=== PATIENT | female | born 1985 | race African-American/Black ===

== ENCOUNTER 2017-03-04 22:14 | Emergency (ER) | payer MEDICAID ==
[~2017-03-04] VITALS: Ht 167.6 cm; Wt 113.4 kg
[~2017-03-04 22:14] MED LIST: AZITHROMYCIN250 MG ORAL; CEPHALEXIN500 MG ORAL; IBUPROFEN800 MG ORAL; NKM; NORCO 10/3251 EA ORAL; PSEUDOEPHEDRINE60 MG PO; ZOFRAN ODT4 MG ORAL
[2017-03-04] MEDS ORDERED: IBUPROFEN600 MG ORAL (23:03)
--- NOTE | 2017-03-04 23:14 | Emergency Room Report ---
History of Present Illness General Chief Complaint: Lower Extremity Injury Source: Patient Present Illness HPI 31YOF with lateral left ankle swelling 1 day after "missed step" Unsure if eversion/inversion of ankle No other injury Previous RIGHT ankle fx Didnt take OTC meds Swelling worse today Allergies: Coded Allergies: PENICILLINS (Unverified Allergy, Unknown, 12/25/15) Uncoded Allergies: PENECILLIN (Allergy, Unknown, 12/25/15) Patient History Past Medical History: none Past Surgical History: other - Right ankle fx Pertinent Family History: none Social History: Denies: smoking, alcohol use, drug use Last Menstrual Period: last month Now: No : 2 Immunizations: UTD Reviewed Nursing Documentation: PMH: Agreed, PSxH: Agreed Review of Systems All Other Systems: negative except mentioned in HPI Physical Exam Vital Signs Date Time Temp Pulse Resp B/P (MAP) Pulse Ox O2 Delivery O2 Flow Rate FiO2 03/04/17 22:19 98.1 78 20 126/79 99 Room Air Sp02 EP Interpretation: reviewed, normal General Appearance: normal inspection, well appearing, no apparent distress, alert Head: atraumatic ENT: normal ENT inspection, hearing grossly normal, normal voice Neck: normal inspection, full range of motion, supple, no bony tend Respiratory: normal inspection, lungs clear, normal breath sounds, no respiratory distress, no retraction, no wheezing Cardiovascular #1: regular rate, rhythm, no edema Gastrointestinal: normal inspection, normal bowel sounds, non tender, soft, no guarding, no hernia Genitourinary: no CVA tenderness Musculoskeletal: normal inspection, back normal, normal range of motion, Oscar' s Sign negative, other - left ankle: obvious lateral malleoli swelling with ttp. Otherwise ankle with full ROM. No dorsal ttp. No proximal lower extremity pain at knee. Neurologic: normal inspection, alert, oriented x3, responsive, director of hospitality III-XII nml as tested, speech normal Psychiatric: normal inspection, judgement/insight normal, mood/affect normal Skin: normal inspection, normal color, no rash Medical Decision Making Diagnostic Impression: Primary Impression: Ankle sprain Qualified Codes: S93.492A - Sprain of other ligament of left ankle, initial encounter ER Course left ankle sprain No fx, dislocation on ED review of xray Likely sprain KHADIJAH wrap, crutches provided Analgesia given RICE instructions with PMD/Ortho followup recommended DC home Other X-Ray Diagnostic Results Other X-Ray Diagnostic Results : X-Ray ordered: Left ankle # of Views/Limited Vs Complete: 3 View Indication: Pain EP Interpretation: Yes Interpretation: no dislocation, no fractures, other - +soft tissue swelling lateral malleoli Electronically Signed by: Dr Jaylen Alvarado MD Last Vital Signs Date Time Temp Pulse Resp B/P (MAP) Pulse Ox O2 Delivery O2 Flow Rate FiO2 03/04/17 22:19 98.1 78 20 126/79 99 Room Air Status: improved Disposition: HOME, SELF-CARE Condition: Improved Scripts Ibuprofen* (MOTRIN*) 600 Mg Tablet 600 MG ORAL THREE TIMES A DAY for For Pain for 7 Days, #30 TAB 0 Refills Prov: JAYLEN ALVARADO M.D. 03/04/17 Referrals: [facility],REFERRING (PCP) Patient Instructions: Ankle Sprain JAYLEN ALVARADO M.D. Mar 04, 2017 23:14
[2017-03-04 23:20] VITALS: BP 126/79
--- NOTE | 2017-03-05 12:14 | Diagnostic Imaging Report ---
Indication: left ankle pain Comparison: None Findings: 3 views of the left ankle obtained. There is soft tissue swelling. There is no malalignment or fracture identified Impression: Soft tissue swelling
== END 2017-03-04 23:20 | disposition home or self-care (01) ==
LOC: EMR 22:31
DX: S93.402A Sprain of unspecified ligament of left ankle, initial encounter (principal); W10.8XXA Fall (on) (from) other stairs and steps, initial encounter; Y92.89 Other specified places as the place of occurrence of the external cause; Z88.0 Allergy status to penicillin
CPT/HCPCS: 99283

== ENCOUNTER 2018-07-22 22:39 | Emergency (ER) | payer MEDICAID ==
[~2018-07-22] VITALS: Ht 167.6 cm; Wt 117.9 kg
[~2018-07-22 22:39] MED LIST changes: +IBUPROFEN600 MG ORAL
[2018-07-22 22:50] VITALS: BP 123/82
[2018-07-22] MEDS ORDERED: HYDROcodone/Acetamin 5/325 tab ORAL ONE (23:00)
--- NOTE | 2018-07-22 23:08 | Emergency Room Report ---
History of Present Illness General Chief Complaint: Female Urogenital Problems Source: Patient Present Illness HPI Is a 32-year-old female with no respiration. She presents with chief complaint of right flank pain and vaginal pain. Onset today. Also with urinary frequency and urgency. Also with some hematuria. No nausea no vomiting. Pain is 7 out of 10. Sharp in nature. Derwent burning to her lower back. Denies any other complaint. Allergies: Coded Allergies: PENICILLINS (Unverified Allergy, Unknown, 12/25/15) PINEAPPLE (Verified Allergy, Unknown, 07/22/18) Uncoded Allergies: PENECILLIN (Allergy, Unknown, 12/25/15) Patient History Past Medical History: see triage record, old chart reviewed Past Surgical History: none Pertinent Family History: none Social History: Denies: smoking Last Menstrual Period: Jul 04 2018 Now: No Immunizations: other Reviewed Nursing Documentation: PMH: Agreed; PSxH: Agreed Review of Systems Eye: Denies: eye pain, blurred vision ENT: Denies: ear pain, nose congestion, throat swelling Respiratory: Denies: cough, shortness of breath Cardiovascular: Denies: chest pain, palpitations Gastrointestinal: Denies: abdominal pain, diarrhea, nausea, vomiting Genitourinary: Reports: dysuria, hematuria, pain, urgency Musculoskeletal: Reports: back pain; Denies: joint pain Skin: Denies: rash Neurological: Denies: headache, numbness Endocrine: Denies: increased thirst, increased urine Hematologic/Lymphatic: Denies: easy bruising All Other Systems: negative except mentioned in HPI Physical Exam Vital Signs Date Time Temp Pulse Resp B/P (MAP) Pulse Ox O2 Delivery O2 Flow Rate FiO2 07/22/18 22:45 98.2 83 20 123/82 98 Room Air vitals normal Sp02 EP Interpretation: reviewed, normal General Appearance: well appearing, no apparent distress, alert, obese Head: normocephalic, atraumatic Eyes: bilateral eye PERRL, bilateral eye EOMI ENT: hearing grossly normal, normal pharynx Neck: full range of motion, supple, no meningismus Respiratory: chest non-tender, lungs clear, normal breath sounds Cardiovascular #1: regular rate, rhythm, no murmur Gastrointestinal: normal bowel sounds, non tender, no mass, no organomegaly, no bruit, non-distended Musculoskeletal: back normal, gait/station normal, normal range of motion Psychiatric: mood/affect normal Skin: warm/dry Medical Decision Making Diagnostic Impression: Primary Impression: UTI (urinary tract infection) Qualified Codes: N30.01 - Acute cystitis with hematuria ER Course Patient with abdominal pain and has UTI with hematuria. No evidence of pyelonephritis or kidney stone. No evidence of acute abdomen. We'll discharge home with antibiotics. CT/MRI/US Diagnostic Results CT/MRI/US Diagnostic Results : Imaging Test Ordered: CT abdomen and pelvis Impression negative per radiologist Last Vital Signs Date Time Temp Pulse Resp B/P (MAP) Pulse Ox O2 Delivery O2 Flow Rate FiO2 07/22/18 22:45 98.2 83 20 123/82 98 Room Air Status: improved Disposition: HOME, SELF-CARE Condition: Stable Scripts Hydrocodone/Acetaminophen 5-325* (HYDROCODONE/ACETAMINOPHEN 5-325*) 1 Each Tablet 1 TAB ORAL Q6H PRN for For Pain, #15 TAB 0 Refills Prov: Polo Duarte MD 07/22/18 Cephalexin* (KEFLEX*) 500 Mg Capsule 500 MG ORAL TID, #21 CAP Prov: Polo Duarte MD 07/22/18 Referrals: NOT CHOSEN [facility]/,REFERRING (PCP) Patient Instructions: Urinary Tract Infection Additional Instructions: Follow-up with your Dr. in 7 days. Return if symptom worsen. Polo Duarte MD Jul 22, 2018 23:08
[2018-07-22 23:10] LABS: APPEARANCE,URINE SLIGHTLY CLOUDY; BILIRUBIN, URINE NEGATIVE (NEGATIVE); GLUCOSE, URINE (UA) NEGATIVE (NEGATIVE); KETONES,URINE NEGATIVE (NEGATIVE); LEUKOCYTE ESTERASE ,URINE 2+ (NEGATIVE); NITRITE,URINE NEGATIVE (NEGATIVE); PH,URINE 5 (4.5-8.0); PROTEIN,URINE 1+ (NEGATIVE); UROBILINOGEN,URINE NORMAL MG/DL (0.0-1.0)
[2018-07-22 23:12] LABS: COLOR,URINE YELLOW
[2018-07-22] MEDS ORDERED: HYDROCODON-ACE1 EA15 ORAL (23:59)
[2018-07-22] MEDS ORDERED: CEPHALEXIN500 MG ORAL (23:59)
[2018-07-23] MEDS ORDERED: Cephalexin 500mg cap ORAL ONE
[2018-07-23] MEDS ORDERED: FLUCONAZOLE100 MG ORAL (00:06)
[2018-07-23 00:09] VITALS: BP 126/70
--- NOTE | 2018-07-23 10:48 | Diagnostic Imaging Report ---
Indication: Abdominal pain Technique: Continuous helical transaxial imaging of the abdomen and pelvis was obtained from the lung bases to the pubic symphysis. No intravenous contrast was administered. Coronal 2-D reformats were also obtained. Automatic Exposure Control was utilized. Total Dose length Product (DLP): 1071.[address] Dose Index Volume (CTDIvol): 19.51 mGy Comparison: none Findings: The lung bases are clear. Evaluation of solid organs limited on this exam done without IV contrast material or oral contrast. There is no nephrolithiasis or hydronephrosis identified. The size of the liver and spleen appear normal. There is no free fluid. The appendix is normal. Intrauterine device noted. The bladder is nondistended. No evidence of bowel obstruction. No free air seen. IMPRESSION: Limited evaluation due to body habitus. No acute findings appreciated IUD. [facility] has communicated the preliminary results to the Emergency Department. Their findings are largely concordant with this report. The CT scanner at [facility] is accredited by the [employer] and the scans are performed using dose optimization techniques as appropriate to a performed exam including Automatic Exposure control.
== END 2018-07-23 00:10 | disposition home or self-care (01) ==
LOC: EMR 22:50
DX: N39.0 Urinary tract infection, site not specified (principal); R31.9 Hematuria, unspecified; Z88.0 Allergy status to penicillin; Z97.5 Presence of (intrauterine) contraceptive device
CPT/HCPCS: 74176; 81003; 81025; 87086; 99284